=== PATIENT | male | born 1980 | race Caucasian/White ===

== ENCOUNTER 2017-08-18 18:47 | Emergency (ER) | payer SELFPAY ==
[2017-08-18 19:07] VITALS: BP 128/80; PULSE 67; RESP 18; TEMP 98.9; O2SAT 100
== END 2017-08-18 20:21 | disposition left against medical advice (07) ==
LOC: NED 18:47
DX: M79.89 Other specified soft tissue disorders (principal)
CPT/HCPCS: 99281